=== PATIENT | female | born 1990 | race Caucasian/White ===

== ENCOUNTER 2016-10-16 14:45 | Emergency (ER) | payer OTHER ==
[2016-10-16 15:15] VITALS: BP 123/67
--- NOTE | 2016-10-16 15:36 | UC ---
Lower Extremity/Ankle HPI - HPI Summary HPI Summary: right lower leg pain after a plane trip from [place]. She is concerned about blood clot she is also concern as her provider in [place] increase her thyroid med before she left and will be traveling for 4 months - History of Current Complaint Chief Complaint: UCLowerExtremity Stated Complaint: LEG PAIN Time Seen by Provider: 10/16/16 15:25 Hx Obtained From: Patient Hx Last Menstrual Period: 3 WEEKS AGO ?: No Onset/Duration: Gradual Onset Severity Initially: Moderate Severity Currently: Moderate Aggravating Factor(s): Nothing Alleviating Factor(s): Nothing Able to Bear Weight: Yes - Allergies/Home Medications Allergies/Adverse Reactions: Allergies Allergy/AdvReac Type Severity Reaction Status Date / Time NUTS Allergy Severe Anaphylatic Uncoded 10/16/16 15:16 Shock PRESERVATIVES Allergy Severe Rash Uncoded 10/16/16 15:16 Home Medications: Home Medications Thyroid Med* PO DAILY 10/16/16 [History] PMH/Surg Hx/FS Hx/Imm Hx Previously Healthy: No Endocrine History: Hypothyroidism - Surgical History Surgical History: None - Family History Known Family History: Positive: None - Social History 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 [employer] Lives: Alone Alcohol Use: Occasionally Substance Use Type: None Smoking Status (MU): Never Smoked Tobacco Review of Systems Constitutional: Negative Skin: Negative Eyes: Negative ENT: Negative Respiratory: Negative Cardiovascular: Negative Gastrointestinal: Negative Genitourinary: Negative Motor: Negative Neurovascular: Negative Musculoskeletal: Myalgia - right posterior calf pain Neurological: Negative Psychological: Negative All Other Systems Reviewed And Are Negative: Yes Physical Exam Triage Information Reviewed: Yes Appearance: Well-Appearing, No Pain Distress, Well-Nourished Vital Signs: Initial Vital Signs Temp 98.6 F 10/16/16 15:09 Pulse 77 10/16/16 15:09 Resp 16 10/16/16 15:09 BP 123/67 10/16/16 15:09 Pulse Ox 100 10/16/16 15:09 Vital Signs Reviewed: Yes Eye Exam: Normal Eyes: Positive: Conjunctiva Clear ENT Exam: Normal ENT: Positive: Normal ENT inspection, Hearing grossly normal, TMs normal. Negative: Nasal congestion, Nasal drainage, Trismus, Muffled/hoarse voice Dental Exam: Normal Neck exam: Normal Neck: Positive: Supple, Nontender Respiratory Exam: Normal Respiratory: Positive: Chest non-tender, No respiratory distress, No accessory muscle use Cardiovascular Exam: Normal Cardiovascular: Positive: RRR, No Murmur, Pulses Normal, Brisk Capillary Refill Musculoskeletal Exam: Normal Musculoskeletal: Positive: Strength Intact, ROM Intact, No Edema Neurological Exam: Normal Neurological: Positive: Alert, Muscle Tone Normal Psychological Exam: Normal Skin Exam: Normal Diagnostics - Radiology No standard instances Xray Interpretation: No Acute Changes - no evidence of DVT Radiology Interpretation Completed By: Radiologist Lower Extremity Course/Dx - Course Course Of Treatment: chesk tsh and electrolytes, follow at [place] or return for further concerns - Differential Dx/Diagnosis Differential Diagnosis/HQI/PQRI: Cellulitis, Contusion, DVT, Phlebitis Provider Diagnoses: Leg Cramps, HYpothyroid by history Discharge - Discharge Plan Condition: Stable Disposition: HOME Patient Education Materials: Hypothyroidism (ED), Leg Cramps (ED) Referrals: [facility] [address] [Provider Group] - 1 Week [facility] [place] [facility] REFERRAL [Outside] - 1 Week
--- NOTE | 2016-10-16 16:06 | RAD ---
INDICATION: Right lower extremity pain after flight. COMPARISON: There are no prior studies available for comparison. TECHNIQUE: Multiple real-time, color flow and Doppler tracings of the right lower extremity were obtained. FINDINGS: The common femoral, femoral, profunda femoral and popliteal veins all demonstrate normal compressibility, augmentation with compression and phasic response with respiration. The posterior tibial and peroneal veins demonstrate normal compressibility and augmentation with compression. IMPRESSION: NO EVIDENCE FOR DEEP VENOUS THROMBOSIS.
[2016-10-16 18:43] LABS: Albumin 4.4 g/dL (3.2-5.2); BUN/Creatinine Ratio 16.9 (8-20); Calcium 9.7 mg/dL (8.6-10.3); EGFR Non-African American 99.5 (>60); Globulin 2.8 g/dL (2-4); Potassium 3.9 mmol/L (3.5-5.0); Total Bilirubin 0.6 mg/dL (0.2-1.0); Total Protein 7.2 g/dL (6.4-8.9)
[2016-10-16 18:52] LABS: TSH (Thyroid Stimulating Horm) 3.09 mcIU/mL (0.34-5.60)
== END 2016-10-16 16:44 | disposition home or self-care (01) ==
LOC: UCEAST 14:45
DX: R25.2 Cramp and spasm (principal); E03.9 Hypothyroidism, unspecified; Z91.018 Allergy to other foods
CPT/HCPCS: 36415; 80053; 84443; 99201; G0463